=== PATIENT | female | born 1965 | race Caucasian/White ===

== ENCOUNTER → 2016-10-31 | Outpatient (CLI) | payer OTHER | END | disposition disaster alternative care site (69) | LOC: GRAD 10-18 15:00 | DX: R29.898 Other symptoms and signs involving the musculoskeletal system (principal); M32.9 Systemic lupus erythematosus, unspecified; M79.651 Pain in right thigh; R10.31 Right lower quadrant pain; Z90.49 Acquired absence of other specified parts of digestive tract ==